=== PATIENT | female | born 1980 | race Caucasian/White ===

== ENCOUNTER 2017-09-21 12:15 | Emergency (ER) | payer OTHER ==
[2017-09-21] MEDS: MECLIZINE 12.5 MG TAB PO (15:50)
== END 2017-09-21 16:34 | disposition left against medical advice (07) ==
LOC: FTE 12:15
DX: R42 Dizziness and giddiness (principal); R11.10 Vomiting, unspecified
CPT/HCPCS: 82962; 93005; 99283-25